=== PATIENT | male | born 1955 | race Two or more races ===

== ENCOUNTER 2018-10-06 19:16 | Emergency (ER) | payer OTHER ==
[~2018-10-06] VITALS: Ht 172.7 cm; Wt 88.5 kg
[2018-10-06] MEDS ORDERED: MAXIMUM D310000 UNIT (19:29)
[2018-10-06] MEDS ORDERED: LOVAZA1 GM (19:30)
[2018-10-06] MEDS ORDERED: HUMALOG MI100 UNIT/2 (19:30)
[2018-10-06] MEDS ORDERED: ZOCOR40 MG (19:31)
[2018-10-06] MEDS ORDERED: LISINOPRIL2.5 MG (19:31)
[2018-10-06] MEDS ORDERED: TENORMIN25 MG (19:31)
[2018-10-06] MEDS ORDERED: SYNTHROID50 MCG (19:32)
[2018-10-06] MEDS ORDERED: NEURONTIN800 MG (19:32)
[2018-10-06] MEDS ORDERED: ATIVAN1 M1 (19:33)
[2018-10-06] MEDS ORDERED: ZOLOFT100 MG (19:33)
[2018-10-06] MEDS ORDERED: TRAZODONE HCL100 MG (19:34)
[2018-10-06] MEDS ORDERED: RESTORIL30 MG (19:34)
== END 2018-10-06 22:15 | disposition home or self-care (01) ==
LOC: ER 19:16
DX: K29.60 Other gastritis without bleeding (principal)